=== PATIENT | female | born 1990 | race African-American/Black ===

== ENCOUNTER 2023-04-21 00:14 | Emergency (ER) | payer MEDICAID ==
[~2023-04-21] VITALS: Ht 167.6 cm; Wt 82.0 kg
[2023-04-21 00:18] VITALS: BP 106/58; PULSE 90; RESP 16; O2SAT 98
[2023-04-21 00:42] LABS: BASOPHILS % 0.3 % (0.0-2.0); EOSINOPHILS % 0.2 % (0.0-5.0); HEMATOCRIT. 36.2 % (36.0-48.0); HEMOGLOBIN. 11.5 g/dL (12.0-16.0); LYMPHOCYTES % 21.4 % (20.0-50.0); MEAN CORPUSCULAR HEMOGLOBIN 22.2 pg (28.0-32.0); MEAN CORPUSCULAR HGB CONC 31.8 g/dL (31.0-37.0); MEAN CORPUSCULAR VOLUME 69.8 fL (81.0-99.0); MEAN PLATELET VOLUME 8.6 fl (7.4-10.4); MONOCYTES % 6.4 % (2.0-8.0); NEUTROPHILS % 71.7 % (40.0-76.0); PLATELET 226 x1000/uL (130-400); RED BLOOD CELL COUNT 5.19 mill/uL (4.2-5.4); WHITE BLOOD COUNT 14.2 x1000/uL (4.5-11.0)
[2023-04-21 00:51] LABS: ADD RBC MORPHOLOGY YES; DIFFERENTIAL COMMENT 1
[2023-04-21 00:52] LABS: ALANINE AMINOTRANSFERASE 20 IU/L (10-49); ALBUMIN 4.4 g/dL (3.2-4.8); ASPARTATE AMINOTRANSFERASE 16 IU/L (<34); BILIRUBIN TOTAL 0.8 mg/dL (0.1-1.0); CALCIUM 8.9 mg/dL (8.7-10.4); CARBON DIOXIDE 24 mEq/L (21-32); CHLORIDE 104 mEq/L (98-107); CREATININE 0.8 mg/dL (0.6-1.0); GLUCOSE 128 mg/dL (70-105); POTASSIUM 3.4 mEq/L (3.5-5.1); PROTEIN TOTAL 7.7 g/dL (6.0-8.3); SODIUM 136 mEq/L (136-145); UREA NITROGEN BLOOD 9 mg/dL (9-23)
[2023-04-21 01:14] LABS: HCG SCREEN NEGATIVE
[2023-04-21] MEDS: SODIUM CHLORIDE 0.9% 1,000 ML IV ONE (01:33)
[2023-04-21 01:41] LABS: INR 0.9; PROTHROMBIN TIME 10.5 sec (9.6-11.0)
[2023-04-21 03:14] LABS: CLARITY URINE CLEAR (CLEAR); COLOR URINE YELLOW (YELLOW); GLUCOSE URINE NEGATIVE (NEGATIVE); KETONES URINE NEGATIVE (NEGATIVE); LEUKOCYTE ESTERASE URINE NEGATIVE (NEGATIVE); NITRITE URINE NEGATIVE (NEGATIVE); OCCULT BLOOD URINE NEGATIVE (NEGATIVE); PH URINE 6.5 (4.5-8.0); PROTEIN URINE NEGATIVE (NEGATIVE); SPECIFIC GRAVITY URINE 1.004 (1.005-1.030); UROBILINOGEN URINE 0.2 E.U./dL (0.2-1.0)
[2023-04-21 03:23] LABS: *AMPHETAMINES SCREEN URINE NEGATIVE (NEGATIVE); *BARBITURATES SCREEN URINE NEGATIVE (NEGATIVE); *BENZODIAZEPINES SCREEN URINE NEGATIVE (NEGATIVE); *COCAINE SCREEN URINE NEGATIVE (NEGATIVE); CANNABINOID URINE SCREEN PRESUMPTIVE POSITIVE (NEGATIVE); ECSTASY MDMA SCREEN URINE NEGATIVE (NEGATIVE); METHADONE URINE SCREEN Neg (NEGATIVE); OPIATES URINE SCREEN NEGATIVE (NEGATIVE); PHENCYCLIDINE URINE SCREEN NEGATIVE (NEGATIVE)
[2023-04-21 03:30] LABS: PLATELET ESTIMATE NORMAL
[2023-04-21 03:31] LABS: HYPOCHROMASIA 1+; MICROCYTOSIS 2+
[2023-04-21 03:42] VITALS: TEMP 98.1
[2023-04-21] MEDS: ACETAMINOPHEN 325MG TABLET PO NR (03:42)
[2023-04-21] MEDS: ONDANSETRON HCL 4MG/2ML INJ IV STA (03:44)
== END 2023-04-21 04:37 | disposition home or self-care (01) ==
LOC: ER 00:14
DX: R55 Syncope and collapse (principal); E86.0 Dehydration; F12.90 Cannabis use, unspecified, uncomplicated; Z20.822 Contact with and (suspected) exposure to COVID-19; Z00.00 Encounter for general adult medical examination without abnormal findings
CPT/HCPCS: 80053; 80305; 81003; 84703; 83605; 83690; 85025; 85610; 87804 ×2; 36415; 93005; 96360; 99284; 87426; J7030; Z7610 ×3